=== PATIENT | female | born 2000 | race Caucasian/White ===

== ENCOUNTER 2023-09-02 15:46 | Emergency (ER) | payer OTHER ==
[~2023-09-02] VITALS: Ht 162.6 cm; Wt 88.6 kg
[~2023-09-02 15:46] MED LIST: ALBUTEROL SUL0.083 % IN; AMOXICILLI400 MG/5 M PO; AMOXICILLIN/CL400 MG PO; AMOXICILLIN500 MG PO; PREDNISONE20 MG PO; PRELONE15 MG/5 M1 OR; ZITHROMAX100 MG/5 M PO
[2023-09-02 16:00] VITALS: BP 136/70
[2023-09-02 16:30] VITALS: BP 139/73
[2023-09-02 17:00] VITALS: BP 123/71
[2023-09-02] MEDS ORDERED: PREDNISONE50 MG PO (17:12)
[2023-09-02 18:22] VITALS: BP 123/71
== END 2023-09-02 18:26 | disposition home or self-care (01) | DRG 916 ==
LOC: ED 15:46
DX: T78.2XXA Anaphylactic shock, unspecified, initial encounter (principal); Z91.048 Other nonmedicinal substance allergy status

== ENCOUNTER 2024-02-29 07:12 | Emergency (ER) | payer OTHER ==
[~2024-02-29] VITALS: Ht 162.6 cm; Wt 90.0 kg
[~2024-02-29 07:12] MED LIST changes: +PREDNISONE50 MG PO
[2024-02-29 07:16] VITALS: BP 120/74
[2024-02-29 07:30] VITALS: BP 127/87
[2024-02-29] MEDS ORDERED: SODIUM CHLORIDE 0.9% 1,000 ML IV ONE (07:30)
[2024-02-29 08:00] VITALS: BP 110/76
[2024-02-29 08:23] LABS: ALBUMIN 4.7 g/dL (3.2-5.0); ANION GAP 7 (6-22 (CALC)); BILIRUBIN, TOTAL 0.6 mg/dL (0.02-1.3); BUN 9 mg/dL (7-17); BUN/CREATININE RATIO 16 (12-20 (CALC)); CARBON DIOXIDE 28 mmol/l (22-30); CHLORIDE 109 mmol/l (95-108); CREATININE 0.5 mg/dL (0.5-1.0); ESTIMATED GFR 136 ML/MIN (>=90 (CALC)); POTASSIUM 3.6 mmol/l (3.5-5.1); SODIUM 140 mmol/l (137-146); TOTAL PROTEIN 7.6 g/dL (6.3-8.2)
[2024-02-29 08:27] LABS: BASO% 0.4 % (0-3); EOS% 2.6 % (0-8); HEMATOCRIT 39.9 % (37.0-47.0); HEMOGLOBIN 13.7 g/dl (12.0-16.0); IMMATURE GRANULOCYTES 0.3 % (0.0-5.0); LYMPH% 32.5 % (15-41); MEAN CELL VOLUME 91.9 fL CALC (80.0-100.0); MEAN CORPUSCULAR HGB 31.6 pG CALC (26.0-32.0); MEAN CORPUSCULAR HGB CONC 34.3 g/dL CAL (32.0-36.0); MONO% 5.9 % (2-13); NEUT# 4.44 thou/uL (2.00-7.15); NEUT% 58.3 % (42-76); RED BLOOD COUNT 4.34 mill/uL (4.20-5.60); RED CELL DISTRI WIDTH 12.2 % (11.5-15.5)
[2024-02-29 08:28] LABS: ALKALINE PHOSPHATASE 39 u/l (38-126); SGOT/AST 23 u/l (14-36)
[2024-02-29 08:30] VITALS: BP 121/81
[2024-02-29] MEDS ORDERED: PAXLOVID PO (08:44)
[2024-02-29 08:51] VITALS: BP 121/81
== END 2024-02-29 09:00 | disposition home or self-care (01) | DRG 179 ==
LOC: ED 07:12
PROVIDERS: Family Medicine
DX: U07.1 COVID-19 (principal); R05.9 Cough, unspecified; R50.9 Fever, unspecified; R06.02 Shortness of breath; R07.9 Chest pain, unspecified

== ENCOUNTER 2024-05-13 16:10 | Emergency (ER) | payer OTHER ==
[~2024-05-13] VITALS: Ht 162.6 cm; Wt 90.7 kg
[~2024-05-13 16:10] MED LIST changes: +PAXLOVID PO
[2024-05-13 17:33] LABS: BASO% 0.3 % (0-3); EOS% 1.3 % (0-8); HEMOGLOBIN 13.4 g/dl (12.0-16.0); IMMATURE GRANULOCYTES 0.2 % (0.0-5.0); LYMPH% 42.6 % (15-41); MEAN CELL VOLUME 93.5 fL CALC (80.0-100.0); MEAN CORPUSCULAR HGB 31.3 pG CALC (26.0-32.0); MEAN CORPUSCULAR HGB CONC 33.5 g/dL CAL (32.0-36.0); MONO% 7.3 % (2-13); NEUT# 4.14 thou/uL (2.00-7.15); NEUT% 48.3 % (42-76); RED BLOOD COUNT 4.28 mill/uL (4.20-5.60); RED CELL DISTRI WIDTH 12.3 % (11.5-15.5); URINE BILIRUBIN - DIPSTICK Negative (NEGATIVE); URINE BLOOD DIPSTICK Negative (NEGATIVE); URINE GLUCOSE - DIPSTICK Negative (NEGATIVE); URINE KETONE Negative (NEGATIVE); URINE NITRITE - DIPSTICK Negative (Negative); URINE PROTEIN - DIPSTICK Negative (NEG-TRACE); URINE UROBILINOGEN - DIPSTICK 0.2 E.U./dL (0.2)
[2024-05-13 17:45] LABS: ALBUMIN 4.7 g/dL (3.2-5.0); BILIRUBIN, TOTAL 0.5 mg/dL (0.02-1.3); CREATININE 0.8 mg/dL (0.5-1.0); POTASSIUM 4.1 mmol/l (3.5-5.1); TOTAL PROTEIN 7.3 g/dL (6.3-8.2); URINE COLOR Yellow; URINE LEUK ESTERASE Small (NEGATIVE)
[2024-05-13 17:46] LABS: URINE RBC 0-2 RBC/hpf (0-5)
[2024-05-13 17:47] LABS: URINE SQUAMOUS EPITHELIAL CELL MANY EPI/hpf (0-FEW)
[2024-05-13 17:48] LABS: URINE AMORPH SEDIMENT FEW hpf (NONE-FEW)
[2024-05-13 17:49] LABS: URINE BACTERIA MODERATE hpf
[2024-05-13] MEDS ORDERED: BIKTARVY 50-2001 TAB PO (18:02)
[2024-05-13 18:15] VITALS: BP 118/68
[2024-05-14] MEDS ORDERED: ISENTRESS400 MG PO (09:54)
[2024-05-14] MEDS ORDERED: LAMIVUDINE/ZIDO1 TAB PO (09:54)
== END 2024-05-13 18:15 | disposition home or self-care (01) | DRG 605 ==
LOC: ED 16:10
PROVIDERS: Family Medicine
DX: S61.432A Puncture wound without foreign body of left hand, initial encounter (principal); W46.1XXA Contact with contaminated hypodermic needle, initial encounter; Y93.F9 Activity, other caregiving; Y92.238 Other place in hospital as the place of occurrence of the external cause; Y99.0 Civilian activity done for income or pay